=== PATIENT | male | born 1960 | race Caucasian/White ===

== ENCOUNTER → 2017-08-21 | Outpatient (CLI) | payer OTHER ==
[~2017-08-21] MED LIST: DIAZ10TA4 PO; DOXE10CA PO; FOLI-17 PO; GABA600T2 PO; INSU100I13 SQ; INSU100V5 SC; INSU100V5 SQ-INSULIN; INSU100V8 SQ; LEVE500T8 PO; LISI2.5T PO; LITH450T PO; METH500T7 PO; MULT-658 PO; NICO-487 TD; PANT40TA3 PO; PANT40TA5 PO; POTA10TA6 PO; SERT25TA PO; SIMV5TAB5 PO; SPIR50TA2 PO; TRAM50TA2 PO; TRAZ100T15 PO; ZIPR80CA3 PO; ZOLP10TA5 PO
== END ==
LOC: CFH 06:53
PROVIDERS: ATTEND Internal Medicine
DX: K80.20 Calculus of gallbladder without cholecystitis without obstruction (principal); K74.69 Other cirrhosis of liver; B18.2 Chronic viral hepatitis C
CPT/HCPCS: 76705